=== PATIENT | female | born 2000 | race African-American/Black ===

== ENCOUNTER 2024-07-03 10:00 | Emergency (ER) | payer SELFPAY ==
[~2024-07-03] VITALS: Ht 167.6 cm; Wt 54.0 kg
[2024-07-03 10:12] VITALS: O2SAT 98
[2024-07-03 10:50] VITALS: BP 130/94; PULSE 70; RESP 14; TEMP 36.61404; O2SAT 98
[2024-07-03] MEDS: CEFTRIAXONE SODIUM 500MG VIAL IM ONE (11:19)
[2024-07-03] MEDS: AZITHROMYCIN 500 MG TABLET PO ONE (11:20)
== END 2024-07-03 11:40 ==
LOC: ER 10:24
DX: F19.129 Other psychoactive substance abuse with intoxication, unspecified (principal); F15.10 Other stimulant abuse, uncomplicated; Z11.3 Encounter for screening for infections with a predominantly sexual mode of transmission
CPT/HCPCS: 96372; 99283; J0696; Z7610 ×2